=== PATIENT | female | born 1990 | race Caucasian/White ===

== ENCOUNTER → 2024-02-25 15:28 | Outpatient (REF) | payer BC, SELFPAY | LOC: RCS 15:28 | DX: Z79.891 Long term (current) use of opiate analgesic (principal) | CPT/HCPCS: 93005 ==

== ENCOUNTER 2024-12-31 23:23 | Emergency (ER) | payer BC, SELFPAY ==
[2024-12-31 23:25] VITALS: BP 128/82
[2025-01-01 00:42] VITALS: BP 119/87
--- NOTE | 2025-01-01 00:42 | ED.GENMED ---
History of Present Illness
General
Chief Complaint: Abdominal Symptoms
Time Seen by Provider: 01/01/25 00:14
History of Present Illness
History of Present Illness:
34-year-old female with no significant past medical history presents the emergency department for evaluation of abdominal discomfort and mucousy diarrhea beginning today. Notes that her significant other was seen in the emergency department at [facility] earlier this week for similar symptoms at which time he had a stool pathogen test that diagnosed him with Sapa virus as well as Entamoeba histolytica. He was prescribed metronidazole and is feeling improved. She is concerned for the
possibility of Entamoeba infection. She denies fevers or vomiting at this time.
Review of Systems
Review of Systems
Allergies reviewed?: Yes
All Other Systems: ROS reviewed and negative except as documented in HPI and ROS
Phy Exam
Physical Exam
Physical Exam:
GEN: Well appearing, NAD, WDWN
HEENT: Oral mucosa moist, no scleral icterus
Cardiac: Regular rate
Lung: No respiratory distress, no tachypnea
Abdomen: Soft, grossly nontender
MSK: No gross deformity or injuries
Skin: Good color, no pallor or jaundice, no rashes
Neuro: AO x3, moves all extremities freely
Psych: Calm, cooperative
Sepsis
Sepsis Screening
Sepsis Assessment: Sepsis Ruled Out
Sepsis Screen
Sepsis Screen: Sepsis Ruled Out
Date: 01/01/25
Time: 02:11
Course
Orders/Labs/Results
Orders:
Orders
01/01/25 00:30
Lactated Ringers [Lr] 1,000 ml IV BOLUS
Ondansetron Injectable [Zofran] 4 mg IV NOW STA
01/01/25 00:48
Complete Blood Count/With Diff Urgent
Comprehensive Metabolic Panel Urgent
01/01/25 01:54
Ondansetron Orally Disint [Zofran Odt (Orally Disintegrating)] 4 mg PO NOW STA
Abnormal Lab Results
01/01/25
00:48
Absolute Lymphs (auto) 0.7 L 10^3/uL
(1.2-3.4)
Neutrophils % 84.6 H %
(42.2-75.2)
Lymphocytes % 9.5 L %
(20.5-51.1)
Glucose 100 H mg/dl
(70-99)
01/01/25 00:48
01/01/25 00:48
Vital Signs
Initial and Last Documented VS:
Initial Vital Signs
Temp Pulse Resp BP Pulse Ox
97.5 F 82 20 128/82 100
12/31/24 23:25 12/31/24 23:25 12/31/24 23:25 12/31/24 23:25 12/31/24 23:25
Last Documented Vital Signs
Temp Pulse Resp BP Pulse Ox
97.5 F 78 20 119/87 100
12/31/24 23:25 01/01/25 00:42 01/01/25 00:42 01/01/25 00:42 01/01/25 00:42
MDM/Problems Addressed
MDM/Problems Addressed:
Patient is clinically well-appearing in no distress. 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 I did advise her that the luminal agent may be
challenging to find and she should consider discussion/consultation with infectious disease prior to use. I did advise her that it is worth waiting 48 to 72 hours in regards to using the metronidazole before determining whether this is needed given
that viral etiology is most likely. She is suitable for outpatient management
*Pulse Oximetry
SaO2: 100
Oxygen Mode of Delivery: Room air
Patient hypoxic: no
*Critical Care Note
Total Time (30-74mins, 75-104mins- exclusive of procedures): Not Applicable
ED Attending Note
-
Portions of this chart may have been created with voice recognition software.� Occasional wrong word or��sound alike� substitutions may have occurred due to the inherent limitations of voice recognition software.
Discharge Plan
Departure
Patient Disposition: Home (Routine Discharge)
Date of Disposition: 01/01/25
Time of Disposition: 01:38
Patient with high blood pressure during this ER visit?: No
Discharge Problem:
Gastroenteritis
Instructions: Diarrhea in teens and adults
Prescriptions:
New
metronidazole 500 mg tablet
500 mg PO TID 7 Days Qty: 21 0RF
paromomycin 250 mg capsule
500 mg PO TIDWMEAL 5 Days Qty: 30 0RF
Referrals:
Kelsey Suazo MD [Active, Infectious Diseases] - Call in 1-3 days for appt
Activity Restrictions/Additional Instructions:
Follow-up with infectious disease to discuss definitive treatment of the Entamoeba histolytica test result, although it is more likely that the Sapa virus detected on your significant others lab result is the causative agent for your symptoms as
opposed to the parasite
Interventions
Interventions:
*Risk Screen - Suicide Last Done: 12/31/24 23:25
*General Assessment Last Done: 01/01/25 00:39
*Neglect/Abuse Screening Last Done: 12/31/24 23:25
*ED- Fall Risk Assessment Last Done: 01/01/25 00:39
*ED COVID-19 Vaccine History Last Done: 01/01/25 00:39
*ED Influenza Vaccine History Last Done: 01/01/25 00:39
TY-Mhqobv-Bjvhxkiqlh Assessment Last Done: 01/01/25 00:37
Discharge Date and Time
Print Language: OCCITAN
[2025-01-01] MEDS: LR 1000 IV (00:47)
[2025-01-01] MEDS: ZOFRAN 4 MG IV (00:50)
[2025-01-01 01:04] LABS: Hematocrit 38.0 % (37.0-47.0); Hemoglobin 12.7 g/dL (12.0-16.0); Mean Corp Hgb Conc. 33.4 g/dL (33.0-37.0); Mean Corpuscular Volume 86.0 fL (81.0-99.0); Nucleated Red Blood Cells % 0 %; Platelet Count 268 10^3/uL (130-400); Red Cell Dist. Width 13.6 % (11.5-14.5)
[2025-01-01 01:31] LABS: ALT (SGPT) 21 U/L (0-35); AST (SGOT) 24 U/L (14-36); Albumin 4.2 g/dl (3.5-5.0); Alkaline Phosphatase 42 U/L (38-126); Blood Urea Nitrogen 15 mg/dl (7-17); Calcium 9.0 mg/dl (8.4-10.2); Carbon Dioxide 28 mmol/L (22-30); Chloride 107 mmol/L (98-107); Glucose 100 mg/dl (70-99); Potassium 4.0 mmol/L (3.5-5.1); Sodium 140 mmol/L (135-145); Total Protein 6.3 g/dl (6.3-8.2); eGFR > 60.00
[2025-01-01] MEDS: ZOFRAN ODT (ORALLY DISINTEGRATING) 4 MG PO (02:20)
== END 2025-01-01 02:42 | disposition home or self-care (01) ==
LOC: EMR 23:23
PROVIDERS: Physician Assistant; EMERGENCY PHYSICIAN Student in an Organized Health Care Education/Training Program
DX: K52.9 Noninfective gastroenteritis and colitis, unspecified (principal); R10.9 Unspecified abdominal pain
CPT/HCPCS: 96374; 96361; 99284; 80053; 85025

== ENCOUNTER → 2025-01-01 09:35 | Outpatient (REF) | payer BC, SELFPAY | LOC: REG 09:35 | PROVIDERS: ATTENDING PHYSICIAN Physician Assistant | DX: R10.9 Unspecified abdominal pain (principal) | CPT/HCPCS: 87045; 87046; 87077; 87328; 87329; 87427 ==